=== PATIENT | male | born 1965 | race Caucasian/White ===

== ENCOUNTER 2016-11-01 11:45 | Day surgery (SDC) | payer OTHER ==
[2016-11-01] VITALS (8 sets, daily range): BP systolic 113–155; BP diastolic 80–99; PULSE 86–107; TEMP 98–98.2
[~2016-11-01] VITALS: Ht 175.3 cm; Wt 100.8 kg
[2016-11-01] MEDS ORDERED: VICTOZA6 MG/ML SQ (13:38)
[2016-11-01] MEDS ORDERED: JANUMXR1000-50 PO (13:39)
[2016-11-01] MEDS ORDERED: ZYRTEC 10MG10 MG PO (13:39)
[2016-11-01] MEDS ORDERED: CRESTOR20 MG PO (13:39)
[2016-11-01] MEDS ORDERED: PYRIDIUM 100MG100 MG PO (13:40)
== END 2016-11-01 20:30 | disposition home or self-care (01) ==
LOC: SDCO 11:45 → SURG 18:00 → SDCO 20:30
DX: N20.1 Calculus of ureter (principal); E11.9 Type 2 diabetes mellitus without complications
CPT/HCPCS: OP; C1769; J0690; J1100; J1940; J2405; J2704; J3010; J7120; Q9967

== ENCOUNTER 2022-04-12 18:24 | Day surgery (SDC) | payer OTHER ==
[~2022-04-12] VITALS: Ht 175.3 cm; Wt 105.1 kg
[~2022-04-12 18:24] MED LIST: CRESTOR20 MG PO; JANUMXR1000-50 PO; PYRIDIUM 100MG100 MG PO; VICTOZA6 MG/ML SQ; ZYRTEC 10MG10 MG PO
[2022-04-12] MEDS ORDERED: GLUCOPHAGE1000 MG PO (19:54)
[2022-04-12] MEDS ORDERED: HYTRIN10 M1 PO (19:55)
[2022-04-12] MEDS ORDERED: ASPIRIN E.C. 8181 MG PO (19:56)
[2022-04-12] MEDS ORDERED: VITAMIN D250 MCG PO (19:58)
[2022-04-12] MEDS ORDERED: LANTUS100 U/ML (19:59)
[2022-04-12] MEDS ORDERED: OZEMPIC0.25 MG/0. (20:00)
[2022-04-12] MEDS ORDERED: COZAAR 25MG25 MG/TAB PO (20:01)
[2022-04-12 20:28] VITALS: BP 152/86; PULSE 79; TEMP 98.1
[2022-04-13] VITALS (11 sets, daily range): BP systolic 132–156; BP diastolic 73–96; PULSE 70–99; TEMP 98.2–98.8
[2022-04-13 06:26] LABS: BASO % 0.3 % (0.0-2.0); EOS # 0.2 K/mm3 (0.0-0.7); EOS % 3.2 % (0.0-4.0); GRAN # 4.2 K/mm3 (1.4-6.5); GRAN % 62.4 % (42.2-75.2); HEMOGLOBIN 12.1 g/dl (13.5-18.0); LYMPH # 1.5 K/mm3 (1.2-3.4); LYMPH % 22.5 % (20.0-51.0); MEAN CELL VOLUME 89 fl (80.0-100.0); MEAN CORPUSCULAR HEMOGLOBIN 31 pg (27-31); MEAN CORPUSCULAR HGB CONC 35 g/dl (33.0-37.0); MEAN PLATELET VOLUME 10.6 fl (7.4-10.4); MONO # 0.8 K/mm3 (0.1-0.6); MONO % 11.5 % (1.7-9.3); PLATELET COUNT 181 K/mm3 (130-400); RED BLOOD COUNT 3.91 M/mm3 (4.20-5.60); REDCELL DISTRIBUTION WIDTH-CV 12.3 % (11.5-14.5)
[2022-04-13 06:34] LABS: HEMATOCRIT 34.8 % (42.0-52.0)
[2022-04-13 06:42] LABS: CREATININE, serum 1.49 mg/dL (0.72-1.25)
[2022-04-13 06:43] LABS: CALCIUM 8.9 mg/dL (8.4-10.2); POTASSIUM 3.8 mmol/L (3.5-4.5)
[2022-04-13 06:44] LABS: MAGNESIUM 1.8 mg/dL (1.6-2.6)
[2022-04-13] MEDS ORDERED: NORCO 325 MG-51 TAB PO (16:59)
[2022-04-13] MEDS ORDERED: PYRIDIUM 100MG100 MG PO (16:59)
== END 2022-04-13 20:05 | disposition home or self-care (01) ==
LOC: SDCO 18:24 → SURG 18:24 → SDCO 04-13 20:05
PROVIDERS: Student in an Organized Health Care Education/Training Program
DX: N20.1 Calculus of ureter (principal)
CPT/HCPCS: OP; C1769; C2617; G0378; J0690; J1100; J1170; J1885; J2270; J2405; J2704; J3010; J7030; Q9967